=== PATIENT | male | born 1960 | race Caucasian/White ===

== ENCOUNTER 2019-10-22 06:59 | Outpatient (RCR) | payer OTHER | END 2019-10-23 | LOC: PT 06:59 | PROVIDERS: ATTEND Specialist | DX: M75.41 Impingement syndrome of right shoulder (principal) ==

== ENCOUNTER 2019-11-05 07:00 | Outpatient (RCR) | payer OTHER | END 2019-11-23 | LOC: PT 07:00 | PROVIDERS: ATTEND Specialist | DX: M75.41 Impingement syndrome of right shoulder (principal) ==